=== PATIENT | female | born 1995 | race Two or more races ===

== ENCOUNTER 2024-03-20 22:35 | Emergency (ER) | payer MEDICAID, SELFPAY ==
[2024-03-20 22:36] VITALS: BMI 38.0
[2024-03-20 22:42] VITALS: BP 119/80; PULSE 113; RESP 20; TEMP 37.3; O2SAT 95
--- NOTE | 2024-03-20 22:59 | PD.EDADULT ---
ED General RME/HPI General Chief complaint: Dental/Oral/Throat Stated complaint: HICCUPS NONSTOP 4 HOURS Time Seen by Provider: 03/20/24 23:55 Source: patient Arrival date/time: 03/20/24 22:35 28-year-old female with no known medical history presents to the emergency room with a chief complaint of hiccups that have not stopped x 4 hours. Mode of arrival: ambulatory Limitations: no limitations Related Data Home Medications ?Medication ?Instructions ?Recorded ?Confirmed divalproex 500 mg tablet,delayed 500 mg PO BID 08/05/20 08/05/20 release levetiracetam 500 mg tablet 1,500 mg PO BID 08/05/20 08/05/20 oxcarbazepine 300 mg tablet 900 mg PO BID 08/05/20 08/05/20 Previous Rx's ?Medication ?Instructions ?Recorded clobazam 20 mg tablet 20 mg PO BID #60 tabs 07/24/23 levetiracetam 750 mg tablet See Rx Instructions .Route 07/24/23 (Keppra) .COMPLEX #90 tabs Allergies Allergy/AdvReac Type Severity Reaction Status Date / Time lacosamide AdvReac Severe PALPITATION Verified 07/24/23 04:24 S Past Medical History Past Medical History NEUROLOGIC: Positive Neurological Disorders, Seizures and Epilepsy CARDIAC: Negative Congestive Heart Failure RESPIRATORY: Negative Chronic Obstructive Pulmonary Disease (COPD) GENITOURINARY: Negative Renal Disease ENDOCRINE: Negative Diabetes Mellitus Type 1 or Diabetes Mellitus Type 2 HEMATOLOGIC: Positive Blood Disorders (leukocytopenia) and Anemia OTHER HISTORY: Positive Hospitalization and Falls Social History SMOKING STATUS: Never smoker ED Exam General Limitations: Present no limitations General appearance: Present alert and in no apparent distress Head Head exam: Present atraumatic Eye Eye exam: Present normal appearance, PERRL and EOMI ENT ENT exam: Present normal exam, normal oropharynx and mucous membranes moist Neck Neck exam: Present normal inspection, full ROM and trachea midline Chest Chest inspection: Present normal inspection and symmetric chest wall rise Respiratory Respiratory exam: Present normal lung sounds bilaterally Cardiovascular Cardiovascular exam: Present regular rate, normal rhythm and normal heart sounds Abdominal Exam Abdominal exam: Present soft and normal bowel sounds Extremities Exam Extremities exam: Present normal inspection and full ROM Back Exam Back exam: Present normal inspection and full ROM Neurological Exam Neurological exam: Present alert, oriented X3 and CN II-XII intact Psychiatric Psychiatric exam: Present normal affect and normal mood Skin Skin exam: Present warm, dry, intact and normal color Course Quality Measures none Orders Category Date Time Status DiphenhydrAMINE [Benadryl] Med 03/20/24 22:57 Discontinued 25 mg PO X1 ONE Haloperidol Lactate [Haldol Inj] Med 03/20/24 22:57 Discontinued 5 mg IM X1 ONE Vital Signs Vital signs: Vital Signs Temperature 99.1 F 03/20/24 22:42 Pulse Rate 113 H 03/20/24 22:42 Respiratory Rate 20 03/20/24 22:42 Blood Pressure 119/80 03/20/24 22:42 Pulse Oximetry (%) 95 03/20/24 22:42 Oxygen Delivery Method Room Air 03/20/24 22:42 O2 saturation 95% within normal limits [facility] Patient data External records reviewed:: [facility] previous records Clinical information provided by:: patient Social determinants that could affect healthcare access:: none Patient has the following chronic illnesses:: Seizures How is presenting disease/condition affected by chronic disease/condition?: uneffected by Evaluation data The following diagnostics were reviewed and interpreted by me:: lab results and radiology exam(s) Lab and/or radiology exams considered but not ordered:: Labs and radiology exams considered and ordered Interpretation Summary: N/A Medications Medications considered but not ordered:: Medication given Medication administrations:: Medication Administration History Discontinued Medications Diphenhydramine HCl (Diphenhydramine Elix 25 Mg/10 Ml Udc) 25 mg PO X1 ONE Stop: 03/20/24 22:58 Last Admin: 03/20/24 23:14 Dose: 25 mg Documented By: Haloperidol Lactate (Haloperidol Lact Inj 5 Mg/Ml Vial) 5 mg IM X1 ONE Stop: 03/20/24 22:58 Last Admin: 03/20/24 23:14 Dose: 5 mg Documented By: Medication given Consultations Consultation(s) initiated? (list below): No Diagnosis Differential Diagnosis ED Complaint MDM: Hiccups Most likely diagnosis given after review of the tests above:: Hiccups Admission Indicated Admission indicated?: not indicated Explain why admission is indicated or not indicated:: N/A Admission Request Was there a request for admission?: No Disposition Plan Disposition Plan: Discharge Discharge Attestation Discharge Attestation: The patient and all family members were given an opportunity to ask questions and understood the discharge instructions. Discharge instructions specifically effects, indications for sooner follow up or return to the emergency department, and the expected course of current diagnosis. Patient condition: Stable Medical Decision Making MDM Narrative MDM Narrative: 28-year-old female with no known medical history presents to the emergency room with a chief complaint of hiccups that have not stopped x 4 hours. Clinically the patient appears nontoxic and in no apparent distress. Physical examination shows hiccups that have been going on for the last 4 hours. Patient states she has had multiple episodes since the beginning of this year. Medication was given to stop the hiccups and the hiccups stopped after 15 minutes. Patient was discharged and educated to follow-up with primary care provider and return to the emergency room for any evidence of worsening signs or symptoms Differential Diagnosis Differential Diagnosis: Hiccups Discharge Plan Plan Patient Disposition: HOME (Self Care) Disposition Comment: Stable Prescriptions/Referrals Prescriptions/Med Rec: No Action levetiracetam 500 mg tablet 1,500 mg PO BID Patient Comments: GHISLAINE 3 TABLETAS POR LA BOCA DOS VECES AL JAVAD oxcarbazepine 300 mg Tablet 900 mg PO BID divalproex 500 mg tablet,delayed release (DR/EC) 500 mg PO BID Patient Comments: GHISLAINE 1 TABLETA POR LA BOCA DOS VECES AL JAVAD PARA 30 DESAI levetiracetam [Keppra] 750 mg tablet See Rx Instructions .ROUTE .COMPLEX Qty: 90 0RF Rx Instructions: 1.5 tablets p.o. every morning. 1 tablet p.o. every evening/ clobazam 20 mg tablet 20 mg PO BID Qty: 60 0RF Referrals: Elvis Zarate PA-C [Primary Care Provider] - In 1 week Problem List Clinical Impression: Hiccups Patient/Caregiver Discharge Instructions Education Materials: ED Hiccups Additional Instructions: Please follow-up with your primary care provider in the next 24 to 48 hours. For any evidence of worsening signs or symptoms please return to the emergency room immediately Print Language: Yakut Stand Alone Forms: Zena Award Info., Patient Portal Info Letter ANGELITA/STAR Supervising Physician ANGELITA/STAR Supervising Physician: Dr Simon
[2024-03-20] MEDS: HALOPERIDOL LACT INJ 5 MG/ML VIAL IM (23:14)
[2024-03-20] MEDS: DiphenhydrAMINE ELIX 25 MG/10 ML UDC PO (23:14)
== END 2024-03-21 01:06 | disposition home or self-care (01) ==
PROVIDERS: Emergency Provider Emergency Medicine; PCP Physician Assistant
DX: R06.6 Hiccough (principal)
CPT/HCPCS: 96372; 99283; J1630; A9270

== ENCOUNTER 2024-11-09 15:00 | Emergency (ER) | payer MEDICAID, SELFPAY ==
--- NOTE | 2024-11-09 15:11 | EKG_ITS ---
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
--- NOTE | 2024-11-09 15:13 | XR_ITS ---
Examination: AP lateral soft tissue neck 2 views Technique one AP lateral soft tissue neck 2 views Date and time: November 09, 2024 1524 hours INDICATIONS: Difficulty breathing stridor today FINDINGS: Normal epiglottis No distention hypopharynx No foreign body No prevertebral soft tissue prominence IMPRESSION: Normal epiglottis No distention hypopharynx
--- NOTE | 2024-11-09 15:13 | PD.EDADULT ---
ED General RME/HPI General Chief complaint: Shortness of Breath/Dyspnea Stated complaint: SOB Time Seen by Provider: 11/09/24 15:10 Arrival date/time: 11/09/24 15:00 CC: Wheezing HPI patient has intermittent wheezing that is been ongoing since last Saturday. Patient has a history that includes seizures as well as depression. Patient is on medication for both patient states she took her seizure medicine today last seizure was months ago . Patient was seen yesterday at [facility] facility discharged with anxiety on Ativan. EMS reports stable vital signs she was transported from a clinic where she was wheezing. During the wheezing episode I witnessed while waiting in the hallway, the patient's oxygen saturations remained 98%. The wheezing is somewhat contrived. And spontaneously resolved. Patient states she has no wheezing episodes that wake her up or occur at nighttime when she is asleep all related in the day. Denies fever nausea vomiting chest pain or shortness of breath. Related Data Home Medications ?Medication ?Instructions ?Recorded ?Confirmed divalproex 500 mg tablet,delayed 500 mg PO BID 08/05/20 08/05/20 release levetiracetam 500 mg tablet 1,500 mg PO BID 08/05/20 08/05/20 oxcarbazepine 300 mg tablet 900 mg PO BID 08/05/20 08/05/20 Previous Rx's ?Medication ?Instructions ?Recorded clobazam 20 mg tablet 20 mg PO BID #60 tabs 07/24/23 levetiracetam 750 mg tablet See Rx Instructions .Route 07/24/23 (Keppra) .COMPLEX #90 tabs Allergies Allergy/AdvReac Type Severity Reaction Status Date / Time lacosamide AdvReac Severe PALPITATION Verified 07/24/23 04:24 S Review of Systems Review of Systems Narrative Review of Systems: [General: Anxious but not in any acute distress Head normocephalic HEENT: Eyes pupils are PERRLA EOMs are intact mouth pink moist membranes uvula is midline swallow symmetrical phonation is normal except when the patient has the stridorous episodes. All other subsystems within acceptable limits Neck is supple nontender, when speaking and at rest there are no stridorous sounds on auscultation. Minimal stridorous sounds on auscultation during stridorous episodes that last anywhere from 30 seconds to 1 minute. Chest equal chest rise nontender to palpation Respiratory: Clear to auscultation no wheezes crackles or rubs CV: Rate rhythm is regular no murmurs rubs or clicks Abdomen is soft nontender no masses positive bowel sounds all 4 quadrants Back: No CVA tenderness no spinous process tenderness from cervical spine thoracic and lumbar spine Skin: Intact no petechiae rash induration ulceration or crepitus Extremities: Moving all extremity against resistance cap refill less than 2 seconds neurosensory intact Neuro: Awake alert oriented x3 Glascow coma 15 no focal deficits] Course Quality Measures none Orders Category Date Time Status EKG (ED ONLY) *Do not use* NOW Care 11/09/24 15:11 Completed EKG (ED Only) Stat Exams 11/09/24 15:11 Draft XR soft tissue neck Stat Exams 11/09/24 15:13 Completed ALBUTEROL RT 0.5ml [Proventil Rt 0.5ml] Med 11/09/24 15:11 Discontinued 2.5 mg INH X1 ONE Sodium Chloride Rt Yesy 0.9% [NS Rt Yesy 0.9%] Med 11/09/24 15:11 Active 3 ml INH PRN PRN Vital Signs Vital signs: Vital Signs Temperature 98.7 F 11/09/24 15:15 Pulse Rate 81 11/09/24 15:15 Respiratory Rate 14 11/09/24 15:15 Blood Pressure 116/75 11/09/24 15:15 Pulse Oximetry (%) 100 11/09/24 15:15 Oxygen Delivery Method Room Air 11/09/24 15:15 Discharge Plan Prescriptions/Referrals Prescriptions/Med Rec: No Action levetiracetam 500 mg tablet 1,500 mg PO BID Patient Comments: GHISLAINE 3 TABLETAS POR LA BOCA DOS VECES AL JAVAD oxcarbazepine 300 mg Tablet 900 mg PO BID divalproex 500 mg tablet,delayed release (DR/EC) 500 mg PO BID Patient Comments: GHISLAINE 1 TABLETA POR LA BOCA DOS VECES AL JAVAD PARA 30 DESAI levetiracetam [Keppra] 750 mg tablet See Rx Instructions .ROUTE .COMPLEX Qty: 90 0RF Rx Instructions: 1.5 tablets p.o. every morning. 1 tablet p.o. every evening/ clobazam 20 mg tablet 20 mg PO BID Qty: 60 0RF Referrals: Emil Leal MD [Physician, Family Practice] - In 1 week No Primary/Family,Physician [Primary Care Provider] - In 1 week Problem List Clinical Impression: Vocal cord dysfunction Patient/Caregiver Discharge Instructions Education Materials: Vocal Cord Dysfunction (VCD) Additional Instructions: Use the straw every time you have an episode like this and it should resolve over time. Print Language: Bengali PA/PLASTER MOLDER Supervising Physician PA/PLASTER MOLDER Supervising Physician: Mauricio Jerome ENP [facility] Clinical Information Provided by patient and EMS Medical Records Reviewed [facility] and EMS Meds/Rx Considered, not Ordered None Labs/Rad/Tests considered, not Ordered None Chronic Illness/Social Conditions Add or document further as needed: Seizures Medication Administration(s) Medication Administration History Sodium Chloride (Sodium Chloride Rt Yesy 0.9% 3 Ml Nebu) 3 ml INH PRN PRN PRN Reason: SOLN Stop: 12/09/24 15:10 Last Admin: 11/09/24 15:35 Dose: 3 ml Documented By: KINA Discontinued Medications Albuterol (Albuterol Rt 2.5 Mg/0.5 Ml Nebu) 2.5 mg INH X1 ONE Stop: 11/09/24 15:12 Last Admin: 11/09/24 15:35 Dose: 2.5 mg Documented By: KINA
[2024-11-09 15:15] VITALS: BP 116/75; PULSE 81; PULSE 82; RESP 14; RESP 18; TEMP 37.1; O2SAT 100; O2SAT 98; BMI 37.5
[2024-11-09 15:35] VITALS: PULSE 85
[2024-11-09] MEDS: ALBUTEROL RT 2.5 MG/0.5 ML NEBU INH (15:35)
[2024-11-09] MEDS: SODIUM CHLORIDE RT SOL 0.9% 3 ML NEBU INH (15:35)
[2024-11-09 15:36] VITALS: PULSE 81; RESP 17; O2SAT 100
== END 2024-11-09 16:04 | disposition home or self-care (01) ==
PROVIDERS: Emergency Provider Emergency Medicine
DX: J38.3 Other diseases of vocal cords (principal)
CPT/HCPCS: 70360; 93005; 94640; 99283